=== PATIENT | female | born 1995 ===

== ENCOUNTER 2018-07-27 07:53 | Inpatient (IN) | payer OTHER ==
--- NOTE | 2018-07-27 08:49 | OBADHP ---
Datetime: 07/27/2018 08:40 Admit Comment, IP Provider: with IUP at 41.1 with PATTY 07/19/18 +FM - CTX - LOF -VB OB: G1 delivered vaginally healthy female in 2012, approx 7lb G2 : current, no complications [employer]: LMP 10/12/17, regular cylcles, denies STI, history of ASCUS pap, repepat pap post MED: negative SURG: left ear surgery at age 14, unknown reason FAM: negative NKDA denies smoking drinking and drug use A/P: with IUP at 41+1 vitals stable, afebrile EFM/TOCO NPO/IVF GBS negative cytotec for IOL pain medication PRN plan or care explained to patient, she expressed understanding FHR - Baseline A Provider: 130 Membranes, Provider: Intact IP Hx Assessment: The History has been Reviewed and is Current Vital Signs Provider: Within Normal Limits IP Chief Complaint: Scheduled induction of labor FHR Category Provider Fetus A: Category I NICHD Decel Fetus A IP Provider: None Dilatation, Provider: 1-2 Effacement, Provider: 50 Station, Provider: -2 EGA AdmitDate IP: 41.1 IP Adm Impression: Term, intrauterine IP Admit Plan: Admit to unit
[2018-07-27 09:11] LABS: BASO % 0.5 % (0.0-2.0); EOS # 0.2 K/uL (0.0-0.7); EOS % 1.6 % (0.0-4.0); HEMOGLOBIN 12.4 g/dL (11.0-16.0); LYMPH # 2.5 K/uL (1.0-4.3); LYMPH % 26.2 % (20.0-40.0); MEAN CELL VOLUME 92.9 fL (81.0-99.0); MEAN CORPUSCULAR HEMOGLOBIN 32.1 pg (27.0-31.0); MEAN CORPUSCULAR HGB CONC 34.6 g/dL (33.0-37.0); MEAN PLATELET VOLUME 8.7 fL (7.2-11.7); MONO # 0.8 K/uL (0.0-0.8); NEUT # 6.2 K/uL (1.8-7.0); NEUT % 63.7 % (50.0-75.0); RBC 3.87 Mil/uL (3.80-5.20); RED CELL DISTRIBUTION WIDTH 14.4 % (11.5-14.5); WHITE BLOOD COUNT 9.7 K/uL (4.8-10.8)
[2018-07-27] MEDS ORDERED: Lactated Ringer's 1,000 ML IV SCH (09:30)
[2018-07-27 09:31] LABS: ALB/GLOB RATIO 1.2 (1.0-2.1); ALT/SGPT 12 U/L (9-52); AST/SGOT 18 U/L (14-36); BLOOD UREA NITROGEN 8 mg/dL (7-17); CALCIUM 8.8 mg/dl (8.6-10.4); GFR NON-AFRICAN AMERICAN > 60
[2018-07-27 09:45] LABS: BARBITURATES, UR NEGATIVE (NEGATIVE); BENZODIAZEPINES, UR NEGATIVE (NEGATIVE); OPIATES, UR NEGATIVE (NEGATIVE); PHENCYCLIDINE, UR NEGATIVE (NEGATIVE)
[2018-07-27 10:05] LABS: HEPATITIS B SURFACE AG Negative (NEGATIVE)
[2018-07-27] MEDS ORDERED: Oxytocin 30 UNIT 30 UNITS/500 ML BAG IV SCH (13:30)
--- NOTE | 2018-07-27 13:35 | OBPN ---
Datetime: 07/27/2018 13:34 IP Progress Impression: Normal progression of labor IP Procedures: Sterile Vag Exam IP Progress Plan: Continue present management; Augmentation IP Progress Note Comment: at 41+1 IOL post dates s/p cytotec PO x 1 for pitocin for agumentation GBS negative pain management PRN FHR Category Provider Fetus A: Category I Dilatation, Provider: 3 Effacement, Provider: 50 Station, Provider: -2 Datetime: 07/27/2018 08:40 Membranes, Provider: Intact FHR - Baseline A Provider: 130 Vital Signs Provider: Within Normal Limits NICHD Decel Fetus A IP Provider: None
[2018-07-27] MEDS ORDERED: Oxytocin 30 UNIT 30 UNITS/500 ML BAG IV ONE (13:46)
[2018-07-27 16:42] LABS: RAPID PLASMA REAGIN NONREACTIVE (NONREACTIVE)
--- NOTE | 2018-07-27 17:59 | OBPN ---
Datetime: 07/27/2018 17:57 IP Progress Impression: Normal progression of labor IP Procedures: Sterile Vag Exam IP Progress Plan: Continue present management; Augmentation; Anesthesia consult IP Progress Note Comment: IOL for post dates s/p cytotec c/w pitocin desires epidural for pain management cont current augmentation Vital Signs Provider: Reviewed; Within Normal Limits Dilatation, Provider: 4 Effacement, Provider: 50 Station, Provider: -2
[2018-07-27] MEDS ORDERED: Fentanyl/Bupivacaine HCl 250 ML EPI ONE (19:10)
--- NOTE | 2018-07-28 00:20 | OBPN ---
Datetime: 07/28/2018 00:17 IP Progress Impression: Normal progression of labor IP Procedures: Artificial ROM IP Progress Plan: Continue present management; Augmentation IP Progress Note Comment: at 41+2 IOL post dates c/w pitocin AROM 12 midnight clear fluid epidural in place GBS negative cont current management FHR Category Provider Fetus A: Category I Dilatation, Provider: 6-7 Effacement, Provider: 60 Station, Provider: -2
[2018-07-28] MEDS ORDERED: Oxytocin 20 units in LR 2,000 ML IV ONE (06:14)
--- NOTE | 2018-07-28 07:07 | OBDS ---
MATERNAL INFORMATION Maternal Complications: None Provider Comments: healthy female delivered vaginally over intact perineum with apgars 9/9. head and shoulders and body delivered atraumatically. mouth and nose suctioned. cord clamped by physi liliane and then cut by father. EBL 350cc. LABOR SUMMARY EDC: 07/19/2018 00:00 No. Babies in Womb: 1 Attempted: No Labor Anesthesia: Epidural LABOR INFORMATION Onset of Labor: 07/27/2018 10:00 Complete Dilatation: 07/28/2018 05:15 Cervical Ripening Agents: Cytotec @ (Annotations: cytotec 50mcg given.) Oxytocin: Induction Group B Beta Strep: Negative Steroids Given: None Reason Steroids Not Administered: Not Applicable MEMBRANES Membranes Rupture Method: Artificial Rupture of Membranes: 07/28/2018 00:01 Length of Rupture (hrs): 6.63 Amniotic Fluid Color: Clear Amniotic Fluid Amount: Moderate Amniotic Fluid Odor: Normal STAGES OF LABOR Stage 1 hrs: 19 Stage 1 min: 15 Stage 2 hrs: 1 Stage 2 min: 24 Stage 3 hrs: 0 Stage 3 min: 20 Total Time in Labor hrs: 20 Total Time in Labor min: 59 VAGINAL DELIVERY Episiotomy: None Laceration Extension: N/A Laceration Type: None Laceration Repair Note: NA Initial Vag Sponge Count: 10+1lAP Final Vag Sponge Count: 10+1lAP Initial Vag Sharps Count: 0 Final Vag Sharps Count: 0 Sponge Count Correct: Yes; Vaginal Sweep Performed Sharps Count Correct: N/A BABY A INFORMATION Infant Delivery Date/Time: 07/28/2018 06:39 Method of Delivery: Vaginal Born in Route : No Forceps: N/A Vacuum Extraction: N/A Shoulder Dystocia : No SHOULDER DYSTOCIA BABY A Infant Delivery Date/Time: 07/28/2018 06:39 PRESENTATION/POSITION BABY A Presentation: Cephalic Cephalic Presentation: Vertex Vertex Position: Right Occipital Anterior Breech Presentation: N/A PLACENTA INFORMATION BABY A Placenta Delivery Time : 07/28/2018 06:59 Placenta Method of Delivery: Spontaneous SCORES BABY A Heart Rate 1 min: >100 bpm Resp Effort 1 min: Good Cry Reflex Irritability 1 min: Cough or Sneeze or Pulls Away Muscle Tone 1 min: Active Motion Color 1 min: Body [place], Extremities Blue SCORE 1 MIN: 9 Heart Rate 5 min: >100 bpm Resp Effort 5 min: Good Cry Reflex Irritability 5 min: Cough or Sneeze or Pulls Away Muscle Tone 5 min: Active Motion Color 5 min: Body [place], Extremities Blue SCORE 5 MIN: 9 INFORMATION BABY A Gestational Age at Delivery: 41.2 Gestational Status: Term Outcome : Liveborn Condition : Stable Sex: Female IDENTIFICATION/MEDS BABY A ID Band Number: [id number] ID Band Location: Left Leg; Left Arm Sensor Applied: Yes Sensor Number: [id number] Sensor Location : Cord Clamp WEIGHT/LENGTH BABY A Birthweight (gms): 3425 Weight (lb): 7 Weight (oz): 9 Length Inches: 21.00 Infant Length cms: 53.3 CORD INFORMATION BABY A No. Cord Vessels: 3 Nuchal Cord : N/A Cord Blood Taken: Yes Infant Suction: Mouth; Nose ASSESSMENT BABY A Infant Complications: None Physical Findings at Delivery: Within Normal Limits Infant Respirations: Appears Normal Care By: DR EDWARDS Transferred To: Remains with Mother
[2018-07-29 07:55] LABS: BASO # 0.1 K/uL (0.0-0.2); BASO % 0.4 % (0.0-2.0); EOS # 0.3 K/uL (0.0-0.7); EOS % 2.5 % (0.0-4.0); LYMPH # 3.6 K/uL (1.0-4.3); LYMPH % 28.7 % (20.0-40.0); MEAN CORPUSCULAR HEMOGLOBIN 31.2 pg (27.0-31.0); MEAN CORPUSCULAR HGB CONC 32.9 g/dL (33.0-37.0); MEAN PLATELET VOLUME 8.3 fL (7.2-11.7); MONO % 7.9 % (0.0-10.0); NEUT # 7.7 K/uL (1.8-7.0); NEUT % 60.5 % (50.0-75.0); RBC 2.9 Mil/uL (3.80-5.20); RED CELL DISTRIBUTION WIDTH 14.8 % (11.5-14.5); WHITE BLOOD COUNT 12.6 K/uL (4.8-10.8)
[2018-07-29 08:07] LABS: MEAN CELL VOLUME 93.7 fL (81.0-99.0)
[2018-07-29 08:08] LABS: HEMOGLOBIN 9.1 g/dL (11.0-16.0)
--- NOTE | 2018-07-29 16:11 | OBPPN ---
Datetime: 07/29/2018 10:39 PP Pain Prov: Within normal limits PP Nausea Prov: Denies PP Flatus Prov: Yes PP BM Prov: No PP Breasts Prov: Not Done PP Heart Prov: Normal PP Lungs Prov: Normal PP Abdomen/Uterus Prov: Normal PP Lochia Prov: Normal PP Vulva/Perineum Prov: Normal PP CVA Tenderness Prov: Normal PP Extremities Prov: Normal PP C/S Incision Prov: Normal PP Progress Prov: Normal PP Comments Phys Exam Prov: Fundus firm and non-tender. Below umbilicus PP Impression Prov: Normal progression PP Plan Prov: Continue present management PP Progress Note Prov: SUBJECTIVE: Patient was seen and examined at bedside this AM. She is s/p post-term induction with PPD # 1. She offers no new complaints this AM and states she is tolerating breast feeding well. She is ambulating without difficulty, admits to flatus, but denies BM. She is tolerating regular diet well without lynn uea/vomiting. She admits to a history of anemia in the past from heavy menstrual bleeding. She denies CP, SOB, dyspnea on exertion, dizziness. OBJECTIVE: BP noted to be low in 90s/50s. H/H noted to be decreased from 12.4/35.9 to 9.1/27.6. Otherwise nor mal physical exam findings as above. ASSESSEMENT/PLAN: Will start on ferrous sulfate 325 mg BID with colace 100 mg BID. Stable and Satisfactory condition and recovery gAnticipate discharge home tomorrow. Case and plan reviewed and discussed with my attending Dr. Oli Parikh, DO, PGY-1 IP PP Procedures: None IP PP Procedures Comments: iron supplementation Vital Signs Provider PP: Reviewed
[2018-07-30] MEDS ORDERED: Influenza Vaccine 60 MCG/0.5 ML SYR (3 yr & up) IM ONE (09:38)
[2018-07-30] MEDS ORDERED: Measles, Mumps, and Rubella 0.5 ML VIAL SC ONE (09:45)
[2018-07-30] MEDS ORDERED: Bupivacaine HCl 15 mg/2 ml Spinal Inj ONE (11:04)
[2018-07-30 14:44] VITALS: BP 83/53; PULSE 100; RESP 18; TEMP 97.9; O2SAT 97
--- NOTE | 2018-07-30 18:08 | OBDCSUM ---
Datetime: 07/30/2018 09:24 Discharged to, Provider: Home Follow up at, Provider: [facility] Disch Instr Activity: Normal activity; May Shower Disch Instr Diet: Regular Discharge Diet restrict Prov: none Discharge Instructions, Provider: Routine instructions given Discharge Diagnosis, Provider: Term Delivered Discharge Time: 07/30/2018 10:00 Follow up in weeks, Provider: 6 weeks Disch Referrals: None Contraception discussed, Prov: Yes Disch Activity Restrictions: No exercising; No lifting; No sexual activity; Nothing in vagina - Inte rcourse, tampons, douche Discharge Diagnosis Prov Other: Acute blood loss anemia Contraception counseling Contraception after Delivery: Foam/Condoms
== END 2018-07-30 10:43 | disposition home or self-care (01) | DRG 373 ==
LOC: C.EROB 07:53 → C.4D 08:39 → C.4M 07-28 10:30
PROVIDERS: ADMIT Obstetrics & Gynecology; ATTEND Obstetrics & Gynecology
PROC: 10E0XZZ Delivery of Products of Conception, External Approach (ICD-10-PCS; principal; 2018-07-28)
PROC: 3E0P7VZ Introduction of Hormone into Female Reproductive, Via Natural or Artificial Opening (ICD-10-PCS; 2018-07-28)
PROC: 10907ZC Drainage of Amniotic Fluid, Therapeutic from Products of Conception, Via Natural or Artificial Opening (ICD-10-PCS; 2018-07-28)
DX: O48.0 Post-term pregnancy (principal); O99.02 Anemia complicating childbirth; D62 Acute posthemorrhagic anemia; Z3A.41 41 weeks gestation of pregnancy; Z37.0 Single live birth; Z30.09 Encounter for other general counseling and advice on contraception